=== PATIENT | female | born 1995 | race African-American/Black ===

== ENCOUNTER 2025-03-11 01:33 | Emergency (ER) | payer MEDICAID, SELFPAY ==
--- NOTE | ~2025-03-11 | XR_ITS ---
[XR ribs RT 2V w CXR 2V ] INDICATION: Status post fall. Right rib pain. TECHNIQUE: Frontal projection of the upper right ribs, frontal projection of the lower right ribs, ob lique projection of all the right ribs, frontal inspiratory chest x-ray for interpretation. FINDINGS: There are no displaced rib fractures identified. There are no soft tissue abnormality see n. The lungs are clear. IMPRESSION: 1:No acute displaced rib fractures. Reviewed, dictated and finalized at location A.
--- OUTSIDE RECORDS SUMMARY | 2025-03-11 05:10 | XMS_ITS | Clinical Summary ---
Author Organization [facility] Address [address] [place] [id number] Care Team Providers Care Clinical Staff Anesthesiologist Name Role Phone No, Physician Primary Care Provider [phone] Allergies Active Allergy Reactions Criticality Noted Date Comments Vancomycin Itching Medium 01/20/2023 Medications albuterol HFA (PROVENTIL HFA,VENTOLIN HFA,PROAIR HFA) 90 mcg/actuation inhaler Inhale 2 puffs every 4 (four) hours as needed for wheezing 1 each 1 01/05/2023 Active Active Problems Problem Noted Date Diagnosed Date Cellulitis of face 01/02/2023 Asthma 06/01/2021 Acute bronchitis 06/01/2021 Bite, insect 04/28/2021 Vaginal delivery labor with delivery 35 weeks gestation of Tobacco dependence Streptococcal pharyngitis Immunizations Immunization Administration Dates Next Due DTaP 2000 Hep B, Adolescent or Pediatric 08/03/1996,1995,1995 Hib (PRP-D) 10/19/1996,08/03/1996,01/23/1996 ,1995 IPV 2000 MMR 2000,10/19/1996 OPV 09/05/1997,01/23/1996,1995 Tdap 03/17/2008 Varicella 03/17/2008 Surgical History Surgery Date Site/Laterality Comments TUBAL LIGATION HERNIA REPAIR Medical History Medical History Date Comments UTI (urinary tract infection) 2 Asthma Asthma Social History Tobacco Use Types Packs/Day Years Used Date Smoking Tobacco: Former Cigarettes Smokeless Tobacco: Never Tobacco Cessation:Counseling Given: Not Answered Alcohol Use Standard Drinks/Week Comments No 0 (1 standard drink = 0.6 oz pur e alcohol) pt reports around 16 oz a day Social Connection and Isolation Panel Answer Date Recorded In a typical week, how many times do you talk on the phone with family, friends, or neighbors? Three times a week 01/03/2023 How often do you get togethe r with friends or relatives? Twice a week 01/03/2023 How often do you attend chur ch or adventist services? Never 01/03/2023 Do you belong to any clubs o r organizations such as latter-day groups, unions, fraternal or athletic groups, or school groups? No 01/03/2023 How often do you attend meet ings of the clubs or organizations you belong to? Never 01/03/2023 Are you , , di vorced, , never , or living with a partner? 01/03/2023 AUDIT-C Answer Date Recorded Q1: How often do you have a drink containing alc ohol? 2-4 times a month 01/02/2023 Q2: How many drinks containi ng alcohol do you have on a typical day when you are drinking? 3 or 4 01/02/2023 Q3: How often do you have si x or more drinks on one occasion? Less than monthly 01/02/2023 Overall Financial Resource Strain (CARDIA) Answe r Date Recorded How hard is it for you to pa y for the very basics like food, housing, medical care, and heating? Not hard at all 01/03/2023 Hunger Vital Sign Answer Date Recorded Within the past 12 months, y ou worried that your food would run out before you got the money to buy more. Never true 01/04/20 23 Within the past 12 months, t he food you bought just didn't last and you didn't have money to get more. Never true 01/03/2023 PRAPARE - Transportation Answer Date Re corded In the past 12 months, has l ack of transportation kept you from medical appointments or from getting medications? No 03/2023 In the past 12 months, has l ack of transportation kept you from meetings, work, or from getting things needed for daily living? No 01/03/2023 Housing Stability Vital Sign Answer Eduardo e Recorded In the last 12 months, was t here a time when you were not able to pay the mortgage or rent on time? No 01/03/2023 In the last 12 months, how many places have you lived? 1 01/03/2023 In the last 12 months, was t here a time when you did not have a steady place to sleep or slept in a long term (including now)? No 01/03/2023 Personal Safety Answer Date Recorded Have you ever been in or are you currently in a harmful physical or emotional relationship or is someone making you feel afraid or unsafe? Denies 11/16/2024 Education Answer Date Recorded What is the highest level of school you have completed or the highest degree you have received? 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 Gender Identity Not on file Sexual Orientation Not on file Obstetrics History Para Term AB IAB SAB Ectopic Multiple Livin g Live Births 2 2 1 1 0 2 2 Date Outcome GA Total Labor Labor/2nd/3rd Weight Sex Type Anes PTL Sachi A1 A5 Name Clin 2017 Term 37w 0d M Vag-S pont Epidur al Livin g Complications:None 2017 35w 1d 5h 36m 5h 18m/0h 09m/0h 09m 2.594 kg (5 lb 11.5 oz) F Vag-S pont Epidur al N Livin g 8 9 MARIO ALBERTO ,ROMMEL Trinidad , Viraj Romero MD Complications:None Delivery Location:This [facility] ([facility]) Last Filed Vital Signs Vital Sign Reading Time Taken Comments Blood Pressure 132/83 11/17/2024 1:30 AM CDT Pulse 110 11/17/2024 1:35 AM CDT Temperature 36.7 C (98.1 F) 11/16/2024 10:34 PM CDT Respiratory Rate 16 11/17/2024 1:30 AM CDT Oxygen Saturation 100% 11/17/2024 1:35 AM CDT Inhaled Oxygen Concentration - - Weight 84.8 kg (186 lb 15.2 oz) 025 10:31 PM CDT Height 154.9 cm (5' 0.98) 11/16/2024 1 0:31 PM CDT Body Mass Index 35.34 11/16/2024 10:31 PM CDT Plan of Treatment Health Maintenance Due Date Last Done Comments Cervical Cancer Screening 1995 Depression Screening 1995 Hepatitis C Screening 1995 Varicella Vaccines (2 of 2 - 2-dose childhood series) 06/09/2008 03/17/2008 Regular Well Visit/Exam 18-64 2013 Pneumococcal vaccine <65 (1 of 2 - PCV) 2014 DTaP/Tdap/Td Vaccine (3 - Td or Tdap) 03/17/2018, 2000 HPV Vaccines (1 - 3-dose SCDM series) 2022 Influenza Vaccine (#1) 2025 Hepatitis B Screening Completed 08/03/1996 , 1995, 1995 Insurance [facility] [place] [facility] Advance Directives For more information, please contact: [phone] * Full Code (Latest Code Status on File) Date Activated Date Inactivated Comments 01/02/2023 1:46 PM 01/05/2023 2:37 PM * Full Code Date Activated Date Inactivated Comments 01/02/2023 1:45 PM 01/02/2023 1:46 PM * Full Code Date Activated Date Inactivated Comments 06/23/2018 6:15 PM 06/25/2018 7:04 PM Full CPR i n case of cardiopulmonary arrest Care Teams Clinical Staff Anesthesiologist Relationship Specialty Start Date End Date No, Physician PCP - General 02/25/21
--- OUTSIDE RECORDS SUMMARY | 2025-03-11 05:10 | XMS_ITS | Clinical Summary ---
Author Organization [facility] Address [address] [place] [address] Care Team Providers Care Publicity Consultant Name Role Phone Blanca Woodard MD Unavailable Source Comments [facility],non-owned Affiliates and Associated Physician Practices is amultiple site organization consisting of ambulatory clinics and hospital sitesin [place], [place], [place] and [place]. This disclosure is being madepursuant to the Care Everywhere program and may not contain all information available regarding this patient. Last updated 18.[facility] Allergies No known active allergies Medications * Be aware that medications may not be up to date on this document. Alwaysverify current medications with the patient. clotrimazole (LOTRIMIN AF) 1 % cream Apply to affected area 2 times daily. 15 g 0 06/28/20 10 Active Additional Information Patient not taking.Reported on 04/15/2018 albuterol (PROVENTIL;VENTOLIN ) (2.5 MG/3ML) 0.083% nebulizer solution Inhale 2.5 mg by mouth every 4 hours while awake. 1 mL 0 11/16/19 11 Active mometasone (ELOCON) 0.1 % cream Apply to affected area daily. 45 g 1 12/26/19 11 Active Additional Information Patient not taking.Reported on 04/15/2018 albuterol HFA (VENTOLIN HFA) 8 gram inhaler 2 puffs 20-30 minutes prior to exercise 18 g 0 02/05/20 11 Active Vit-Fe Fumarate-FA ( VITAMIN) 28-0.8 MG tablet Take 1 tablet by mouth once daily Active vitamin D, ergocalciferol, (DRISDOL) 09090 UNITS capsule Take 50,000 Units by mouth every 30 days Active nicotine (NICODERM CQ) 7 MG/24HR patchIndications:Ni cotine Dependence Apply 1 patch to skin once daily Reasons: Nicotine Addiction 30 patch 3 04/18/20 18 Active progesterone micronized (PROMETRIUM) 200 MG capsule Insert 1 capsule into the vagina at bedtime 30 capsule 2 04/17/20 18 Active iron polysaccharides (NIFEREX 150) 150 MG capsuleIndications: Short cervix affecting (HCC) Take 1 capsule by mouth once daily 30 capsule 2 04/18/20 18 Active docusate sodium (COLACE) 100 MG capsule Take 1 capsule by mouth 2 times daily 30 capsule 2 04/17/20 18 Active Active Problems Patient Care Coordination No te Formatting of this note migh t be different from the original. [place] [facility] [place] Problem Noted Date Diagnosed Date Research study patient - [facility] 04/23/2018 Overview (04/23/2018): Enrolled in the [facility] research study. Please call [phone] when delivery is imminent. Premature cervical dilation in second trimester 04/17/2018 Short interval between pregn ancies affecting in second trimester, antepartum 04/17/2018 Short cervix affecting 04/15/2018 Asthma, intermittent 06/28/2010 Evaluate anatomy not seen on prior sonogram Immunizations Immunization Administration Dates Next Due DPT 09/05/1997,08/13/1996,01/23/1996 ,1995 DTaP VACCINE IM (6wk-6yrs) 2000 HEP B VACCINE, PED/ADOL 08/03/1996,1995, HIB BOOSTER 10/19/1996,08/03/1996,01/23/1996 ,1995 MMR 2000,10/19/1996 POLIO IPV 2000 POLIO OPV 09/05/1997,01/23/1996,1995 TDAP (7yrs+) 03/17/2008 VARICELLA 03/17/2008 Social History Tobacco Use Types Packs/Day Years Used Date Smoking Tobacco: Every Day Cigarettes 0.5 5 Smokeless Tobacco: Never Alcohol Use Standard Drinks/Week Comments No 0 (1 standard drink = 0.6 oz pur e alcohol) Comments No Sex and Gender Information Value Date Recorded Sex Assigned at Not on file Legal 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 Gender Identity Not on file Sexual Orientation Not on file Last Filed Vital Signs Vital Sign Reading Time Taken Comments Blood Pressure 128/70 06/17/2018 1:02 PM TELEPHONE TRIAGE NURSE Pulse 94 06/17/2018 1:02 PM TELEPHONE TRIAGE NURSE Temperature 36.8 C (98.2 F) 04/17/2018 8:30 AM CDT Respiratory Rate 16 06/17/2018 1:02 PM TELEPHONE TRIAGE NURSE Oxygen Saturation 98% 04/17/2018 8:30 AM CDT Inhaled Oxygen Concentration - - Weight 90.5 kg (199 lb 9.6 oz) 06/17/2018 1:02 P M TELEPHONE TRIAGE NURSE Height 157.5 cm (5' 2) 06/17/2018 1:02 PM TELEPHONE TRIAGE NURSE Body Mass Index 36.51 06/17/2018 1:02 PM TELEPHONE TRIAGE NURSE Plan of Treatment Health Maintenance Due Date Last Done Comments HEPATITIS C SCREENING 08/28/2013 DTAP/TDAP/TD VACCINES (7 - Td or Tdap) 03/17/2018 03/17/2008, 2000, 09/05/1997, Additional history exists HPV VACCINE (1 - 3-dose SCDM series) 2022 COVID-19 VACCINE ( season) 2024 DEPRESSION SCREENING 07/28/2024 INFLUENZA VACCINE (#1) 2025 ZOSTER VACCINE (1 of 2) 2045 HEPATITIS B VACCINE Completed 08/03/1996, 1995, 1995 HIB VACCINE Completed 10/19/1996, 01/1997, 01/23/1996, Additional history exists HIV SCREENING Completed 04/29/2018 MENINGOCOCCAL (Group B) VACCINE SHARED DECISION-MAKING Aged Out No longer eligible based on patient's age to complete this topic MENINGOCOCCAL GROUPS A/C/Y/W VACCINE Aged Out No longer eligible based on patient's age to complete this topic PNEUMOCOCCAL VACCINE Aged Out No long er eligible based on patient's age to complete this topic Procedures Procedure Name Priority Date/Time Associated Diagnosis Comments CULTURE STREP B Routine 06/17/2018 2:04 PM TELEPHONE TRIAGE NURSE Short cervix affecting Premature cervical dilation in second trimester GTT 1 HR (50G) GESTATIONAL SCREEN Routine 04/29/2018 3:10 PM CDT Short interval between pregnancies affecting in second trimester, antepartum HIV-1 HIV-2 ANTIBODY + HIV P24 AG PANEL Routine 04/29/2018 3:10 PM CDT Short interval between pregnancies affecting in second trimester, antepartum from Last 3 Months or Most Recently Relevant to Health Maintenance Results * CULTURE STREP B (06/17/2018 2:04 PM TELEPHONE TRIAGE NURSE) Culture Strep B Negative for beta-hemolytic Streptococcus Group B JULIO 06/20/2018 8:09 AM TELEPHONE TRIAGE NURSE [facility] Microbiology MISCELLANEOUS SAMPLES / Unknown Collection / Unknown 06/17/2018 2:04 PM TELEPHONE TRIAGE NURSE 06/17/2018 2:09 PM TELEPHONE TRIAGE NURSE Senait Neal MD LAB - MICROBIOLOGY ORDERABLES Final Result Performing Organization Address City/[facility]/ZIP Co de Phone Number [facility] [address] [place] [address], [facility] [phone] * GTT 1 HR (50G) GESTATIONAL SCREEN (04/29/2018 3:10 PM CDT) Glucose Dose Gestational 50 gm 04/29/2018 3:53 PM CDT [facility] Gestational Diabetes Screen 128 50-<140 mg/dL 04/29/2018 3:53 PM CDT [facility] Blood BLOOD SPECIMEN / Unknown Venipuncture / Unknown 04/29/2018 3:10 PM CDT 04/29/2018 3:31 PM CDT us Angi RENDON LAB - CHEMISTRY ORDERABL ES Final Result [facility] [address] [place] [address] * HIV-1 HIV-2 ANTIBODY + HIV P24 AG PANEL (04/29/2018 3:10 PM CDT) HIV1/2 Ab + P24 Ag Non Reactive Non Reactive 04/29/2018 7:33 PM CDT [facility] Blood BLOOD SPECIMEN / Unknown Venipuncture / Unknown 04/29/2018 3:10 PM CDT 04/29/2018 3:31 PM CDT Narrative [facility] - 04/29/2018 7:33 PM CDT No Laboratory evidence of HIV infection. us Angi Jones TECHNICAL ACCOUNT MANAGER-THERMAL CUTTER HELPER LAB - CHEMISTRY ORDERABL ES Final Result [facility] [address] [place] [address] from Last 3 Months or Most Recently Relevant to Health Maintenance Insurance [facility] * Guarantor: HERNAN [employer]AN[employer] Account Type Relation to Patient Date of Phone Billing Address Personal/Family 1995 [address] [place] [address] Advance Directives * Full Code (Latest Code Status on File) Date Activated Date Inactivated Comments 04/15/2018 4:59 PM 04/17/2018 4:45 PM * Full Code Date Activated Date Inactivated Comments 04/15/2018 12:33 PM 04/15/2018 4:59 PM Care Teams Publicity Consultant Relationship Specialty Start Date End Date Blanca Woodard MD PCP - Pediatrics 08/28/09
--- OUTSIDE RECORDS SUMMARY | 2025-03-11 05:10 | XMS_ITS | Continuity of Care Document ---
Author Organization [facility] Address [address] [place] [address] Phone Care Team Providers Care Laboratory Supervisor Name Role Phone Marie OD, Nick Unavailable Unavailable Advance Directives Directive Yes / No Effective Date File Name No Information Encounters Encounter Description Practice Location Reason(s) For Visit Diagnoses Date Provider Providers Copied on Encounter [facility], [address], [place], [place], [id number], [place] tel:[phone] [facility] No Information [id number] 1 Marie OD Nick. [address] , [address], [place], [address], [place]. tel:[phone] Family History Family Member Type Diagnosis Age At Onset No Information Payers Payer name Insurance type Covered republican ID Authoriza tion(s) Medicaid [facility] [id number] Social History Type Description Quantity Date Captured Comments Sex Female Smoking Status No Information Chief Complaint And Reason For Visit No Information Reason For Referral Reason For Referral No Information History Of Present Illness Encounter Date Complaint History Of Prese nt Illness No Information Functional Status Date Functional Assessmen t No Information Instructions Date Instruction Additional Infor mation No Information Assessments Type Assessment Date No Information Patient Care Teams Name Effective Dates (start - stop) Status Members No Information
--- NOTE | 2025-03-11 05:20 | ED_ITS ---
HPI - Back Pain/Injury General Chief Complaint: Unspecified Stated Complaint: Unknown History of Present Illness HPI Narrative: THIS ENCOUNTER WAS CONDUCTED DURING EMR DOWN TIME, PLEASE REFER TO THE PAPER CHART FOR COMPLETE DOCUMENTATION OF THE EVENTS AND PATIENT'S COURSE. 29-year-old otherwise healthy female presenting to the emergency department with right-sided rib cage pain. She states that she has had some issues with her right-sided rib from a previous injury. She states she fell on her buttock 2 days ago and exacerbated her pain in her right ribs. Denies any head trauma or any other symptoms. No chest pain in the left side of her chest, no difficulty breathing. States that the pain in her ribs hurts when she touches the ribs or she moves a certain direction. Has tried some conservative therapies including topical ice and heat and ibuprofen without any significant relief. No shortness of breath, nausea, vomiting, diaphoresis or any syncope. No head trauma. Related Data Allergies Allergy/AdvReac Type Severity Reaction Status Date / Time No Known Allergies Allergy Unverified 09/11/18 10:54 Review of Systems Review of Systems: As reviewed above in HPI Exam Narrative: GENERAL: [Well-appearing, well-nourished, and in no acute distress.] HEAD: [Normocephalic, atraumatic.] EYES: [PERRLA and EOMI.] ENT: Nares clear, no rhinorrhea or epistaxis. Mucous membranes moist. NECK: Supple. CHEST: Reproducible pain to palpation the right lateral ribcage without any overlying step-offs, deformities. Clear breath sounds throughout without any asymmetry. HEART: [Regular rate and rhythm]. No murmur heard. [Normal peripheral pulses.] ABDOMEN: [Soft, nondistended], [nontender], [No rigidity or guarding] EXTREMITIES: Normal range of motion. [No edema.] SKIN: Warm, dry, no rash. NEURO: [No focal deficits]. Alert and oriented [x3.] PSYCH: [Normal mood and affect.] Course Vital Signs Vital signs: Vital Signs Respiratory Rate 16 03/11/25 05:53 Pulse Oximetry 98 03/11/25 05:53 Temperature 36.8 C 03/11/25 05:55 Pulse Rate 73 03/11/25 05:55 Respiratory Rate 17 03/11/25 05:55 Blood Pressure 118/59 L 03/11/25 05:55 Pulse Oximetry 100 03/11/25 05:55 Oxygen Delivery Room Air 03/11/25 05:55 MDM - Back Pain/Injury MDM Narrative Medical decision making narrative: THIS ENCOUNTER WAS CONDUCTED DURING EMR DOWN TIME, PLEASE REFER TO THE PAPER CHART FOR COMPLETE DOCUMENTATION OF THE EVENTS AND PATIENT'S COURSE. 29-year-old otherwise healthy female presenting to the emergency department with right-sided rib cage pain. She states that she has had some issues with her right-sided rib from a previous injury. She states she fell on her buttock 2 days ago and exacerbated her pain in her right ribs. Denies any head trauma or any other symptoms. No chest pain in the left side of her chest, no difficulty breathing. States that the pain in her ribs hurts when she touches the ribs or she moves a certain direction. Has tried some conservative therapies including topical ice and heat and ibuprofen without any significant relief. No shortness of breath, nausea, vomiting, diaphoresis or any syncope. No head trauma. Patient is hemodynamically stable with unremarkable vital signs. She has reproducible tenderness to palpation lateral ribcage in the right side. She is comfortable not any distress. Clear breath sounds throughout. Likely rib contusion versus less likely rib fracture. Low suspicion pneumothorax or any intrathoracic process. Two-view chest x-ray and rib series was ordered. She was given [place] for analgesia as well as lidocaine patch. X-rays appear to have a right-sided lateral rib fracture isolated to a single rib. Patient will be treated with pain control medications, lidocaine patch and respiratory therapy will provide incentive spirometer and he tried to use it. Patient is safe for discharge with PCP follow-up. No signs of pneumothorax or hemothorax. Pain controlled and normal vital signs. Medical Records Attestation: I reviewed the patient's medical records. Imaging Data Attestation: I personally reviewed and interpreted this imaging study as follows: My impression: Right-sided lateral rib fracture Discharge Plan Discharge Clinical Impression: Closed rib fracture Patient Disposition: Home Condition: Stable Instructions: Antibiotic Form, Rib Fracture (ED) Additional Instructions: You have what appears to be an isolated rib fracture on the right lateral rib consistent with your area of pain. Apply topical lidocaine patches to this area and take oral pain medications and use the incentive spirometry for pain control. Return with any emergent concerns, otherwise follow-up with regular primary care provider. Patient Language: Tuvaluan Prescriptions: New hydrocodone-acetaminophen 5-325 mg tablet 1 tablet PO Q8H PRN (Reason: pain) Qty: 7 0RF acetaminophen [Tylenol Extra Strength] 500 mg tablet 1,000 mg PO TID PRN (Reason: pain) Qty: 30 0RF lidocaine 5 % adhesive patch,medicated 1 patch topical DAILY Qty: 15 0RF Rx Instructions: leave on most painful area for up to 12 hrs Follow-up/Referrals: PHYSICIAN,ICU SPECIALIST [Primary Care Provider] - Time of Disposition: 06:47
[2025-03-11 05:53] VITALS: RESP 16; O2SAT 98
[2025-03-11 05:55] VITALS: BP 118/59; PULSE 73; RESP 17; TEMP 36.8; O2SAT 100
[2025-03-11 07:13] VITALS: BP 123/66; PULSE 71; RESP 15; O2SAT 99
[2025-03-11 07:14] VITALS: BP 123/66; PULSE 71; RESP 15; O2SAT 99
== END 2025-03-11 07:15 | disposition home or self-care (01) ==
PROVIDERS: Emergency Provider Student in an Organized Health Care Education/Training Program
DX: S22.31XA Fracture of one rib, right side, initial encounter for closed fracture (principal); W19.XXXA Unspecified fall, initial encounter
CPT/HCPCS: 71046; 71100; 99283